=== PATIENT | female | born 1980 | race Caucasian/White ===

== ENCOUNTER → 2024-04-22 | Outpatient (CLI) | payer BC ==
[~2024-04-22] MED LIST: GASTROGRAFIN SOLUTION 30ML ONE; ISOVUE-370 76% 100ML VIAL ONE
== END ==
LOC: M PLAIMG 09:04
PROVIDERS: ATTEND Specialist
DX: D25.9 Leiomyoma of uterus, unspecified (principal)
CPT/HCPCS: 74178; Q9963; Q9967

== ENCOUNTER 2024-07-04 11:43 | Observation (INO) | payer BC ==
[~2024-07-04] VITALS: Ht 172.7 cm; Wt 94.9 kg
[~2024-07-04 11:43] MED LIST changes: -GASTROGRAFIN SOLUTION 30ML ONE; +IBUP200C28 PO; -ISOVUE-370 76% 100ML VIAL ONE; +METH10CA7 PO; +METH1CAP3 PO; +REST0.05 OU; +SEMA0.5P SQ; +TRAZ1TAB11 PO; +mirena
[2024-07-04] MEDS: LR 1,000 ML IV SCH ×3 (12:37→18:14)
[2024-07-04 12:54] LABS: HEMATOCRIT 48.8 % (36.0-47.0); HEMOGLOBIN 16.2 g/dl (12.0-15.5); MEAN CORPUSCULAR HEMOGLOBIN 29.1 pg (27.0-33.0); MEAN CORPUSCULAR HGB CONC 33.2 g/dl (32.0-36.5); MEAN CORPUSCULAR VOLUME 87.8 fl (80.0-96.0); PLATELET COUNT, AUTOMATED 263 10^3/uL (150-450); RED BLOOD COUNT 5.56 10^6/uL (4.00-5.40); WHITE BLOOD COUNT 9.5 10^3/uL (4.0-10.0)
[2024-07-04] MEDS: ceFAZolin SOD 2 GM in IV 1 EA IV ONE (14:14)
[2024-07-04] MEDS ORDERED: ACETAMINOPHEN 1000MG 100ML IV BAG As Ordered ONE (14:43)
[2024-07-04] MEDS ORDERED: HYDROmorphone HCL 2MG/ML 1ML VIAL As Ordered ONE (14:43)
[2024-07-04] MEDS ORDERED: ROCURONIUM BROMIDE 50MG/5ML VIAL As Ordered ONE (14:43)
[2024-07-04] MEDS ORDERED: MIDAZOLAM INJ 2MG/2ML VIAL As Ordered ONE (14:43)
[2024-07-04] MEDS ORDERED: ONDANSETRON 4MG 2ML VIAL As Ordered ONE (14:43)
[2024-07-04] MEDS ORDERED: METOCLOPRAMIDE INJ 10MG/2ML VIAL As Ordered ONE (14:43)
[2024-07-04] MEDS ORDERED: propofoL 200 MG/20 ML VIAL As Ordered ONE (14:43)
[2024-07-04] MEDS ORDERED: dexmedeTOMIDine (4MCG/ML)200MCG/50ML BTL (PRECEDEX) As Ordered ONE (14:43)
[2024-07-04] MEDS ORDERED: SUGAMMADEX SODIUM 500 MG/5 ML VIAL (BRIDION) As Ordered ONE (14:43)
[2024-07-04] MEDS ORDERED: KETOROLAC 60MG 2ML VIAL As Ordered ONE (14:43)
[2024-07-04] MEDS ORDERED: LIDOCAINE 2% 100MG/5ML SDV (FOR ANES.) As Ordered ONE (14:43)
[2024-07-04] MEDS ORDERED: fentaNYL 250 MCG/5 ML INJECTION As Ordered ONE (14:43)
[2024-07-04] MEDS ORDERED: ONDANSETRON 4MG 2ML VIAL IV PRN ×2 (16:30→16:55)
[2024-07-04] MEDS: fentaNYL 100 MCG/2 ML INJECTION IV PRN (16:44)
[2024-07-04] MEDS: HYDROMORPHONE HCL 0.5 MG/ 0.5 ML SYRINGE IV PRN (17:10)
[2024-07-04] MEDS: oxyCODONE 5MG TAB PO PRN (17:10)
[2024-07-04] MEDS: traMADol 50 MG TAB PO PRN (17:27)
[2024-07-04 18:00] VITALS: BP 128/90; TEMP 97.8; O2SAT 97
[2024-07-04] MEDS: KETOROLAC 30 MG/ML 1ML VIAL IV PRN (18:08)
[2024-07-04 18:30] VITALS: BP 144/99; TEMP 98.5; O2SAT 93
[2024-07-04 20:30] VITALS: BP 146/86; TEMP 98.3; O2SAT 96
[2024-07-04] MEDS: DOCUSATE SODIUM 100MG CAPSULE PO SCH (21:01)
[2024-07-04 21:30] VITALS: BP 131/86; TEMP 98.3; O2SAT 95
[2024-07-04 22:30] VITALS: BP 131/85; TEMP 98.5; O2SAT 94
[2024-07-05 02:30] VITALS: BP 124/75; TEMP 98.3; O2SAT 94
[2024-07-05] MEDS: traMADol 50 MG TAB PO PRN (02:53)
[2024-07-05] MEDS ORDERED: IBUP-1022 PO (05:25)
[2024-07-05] MEDS ORDERED: TRAM50TA2 PO (05:26)
[2024-07-05] MEDS ORDERED: COLA100C5 PO (05:32)
[2024-07-05 06:30] VITALS: BP 126/80; TEMP 98.3; O2SAT 96
[2024-07-05 08:00] VITALS: BP 128/75; TEMP 98.3; O2SAT 95
[2024-07-05] MEDS ORDERED: METH20CA14 PO (10:18)
[2024-07-05] MEDS ORDERED: METH10CA2 PO (10:18)
[2024-07-05] MEDS ORDERED: METH10CA9 PO (10:18)
[2024-07-05] MEDS ORDERED: MULT-40 PO (10:20)
[2024-07-05] MEDS ORDERED: RA B1TAB2 PO (10:20)
[2024-07-05] MEDS ORDERED: MOME17SP2 NARES (10:20)
[2024-07-05] MEDS ORDERED: HOME MED LIST COMPLETE! XX SCH (10:25)
[2024-07-05 12:00] VITALS: BP 116/98; TEMP 97.8; O2SAT 95
[2024-07-05 16:00] VITALS: BP 130/83; TEMP 98.1; O2SAT 95
== END 2024-07-05 17:45 | disposition home or self-care (01) ==
LOC: M SDC 11:43 → M MS5PR 11:44
PROVIDERS: ADMIT Specialist; ATTEND Specialist
DX: N88.8 Other specified noninflammatory disorders of cervix uteri (principal); D25.2 Subserosal leiomyoma of uterus; D25.1 Intramural leiomyoma of uterus; D25.0 Submucous leiomyoma of uterus; N92.0 Excessive and frequent menstruation with regular cycle; Z91.018 Allergy to other foods; Z88.8 Allergy status to other drugs, medicaments and biological substances
CPT/HCPCS: 36415; 58572; 81025; 85027; 86850; 86900; 86901; 88307; 96374; 96376; J0131; J0665; J0690; J1100; J1170; J1885; J2250; J2405; J2765; J3010; S2900

== ENCOUNTER → 2025-06-11 | Outpatient (CLI) | payer BC ==
[~2025-06-11] MED LIST changes: +COLA100C5 PO; +IBUP600T42 PO; +METH10CA PO; +METH10CA9 PO; +METH20CA14 PO; +MOME17SP2 NARES; +MULT-40 PO; +RA B1TAB2 PO; +TRAM50TA2 PO
== END ==
LOC: M LAB 13:01
PROVIDERS: ATTEND Allergy & Immunology
DX: L50.9 Urticaria, unspecified (principal); J30.89 Other allergic rhinitis

== ENCOUNTER → 2025-07-07 | Outpatient (CLI) | payer BC | LOC: M PLAIMG 16:34 | PROVIDERS: ATTEND Internal Medicine Rheumatology | DX: R76.8 Other specified abnormal immunological findings in serum (principal); R21 Rash and other nonspecific skin eruption; R63.5 Abnormal weight gain; H57.10 Ocular pain, unspecified eye; H53.9 Unspecified visual disturbance; R13.10 Dysphagia, unspecified; K12.1 Other forms of stomatitis; R41.89 Other symptoms and signs involving cognitive functions and awareness; R55 Syncope and collapse; R51.9 Headache, unspecified; R20.2 Paresthesia of skin; R53.83 Other fatigue; G47.09 Other insomnia; K52.9 Noninfective gastroenteritis and colitis, unspecified; R10.9 Unspecified abdominal pain; I73.00 Raynaud's syndrome without gangrene; H93.19 Tinnitus, unspecified ear; R59.1 Generalized enlarged lymph nodes; K90.49 Malabsorption due to intolerance, not elsewhere classified; R68.82 Decreased libido ==